=== PATIENT | female | born 1975 | race Caucasian/White ===

== ENCOUNTER 2023-04-20 14:59 | Outpatient (REF) | payer MEDICAID, SELFPAY ==
[2023-04-20 15:55] LABS: MANUAL DIFF FLAG NO
[2023-04-20 16:02] LABS: Basophils Percent Auto 0.3 % (0-2); Eosinophils Absolute Auto 0.1 X10*3/uL (0.0-0.4); Eosinophils Percent Auto 2.4 % (0-4); Hematocrit 35.7 % (37.0-47.0); Hemoglobin 11.7 g/dl (12.0-16.0); Imm Gran Abs Auto 0.02 X10*3/uL (0.00-0.03); Imm Gran Pct Auto 0.3 % (0.0-0.4); Lymphocytes Absolute Auto 1.6 X10*3/uL (1.2-4.9); Mean Corpuscular HGB Conc 32.8 g/dl (31.0-35.0); Mean Corpuscular Hemoglobin 30.8 pg (27.0-33.0); Mean Corpuscular Volume 93.9 fL (80.0-98.0); Mean Platelet Volume 10.4 fL (9.4-12.3); Monocytes Absolute Auto 0.4 X10*3/uL (0.1-1.2); Monocytes Percent Auto 7.2 % (2-11); Neutrophils Absolute Auto 3.6 x10*3/uL (2.0-8.3); Neutrophils Percent Auto 61.8 % (45-73); Platelet Count 353 X10*3/uL (160-400); Red Cell Distribution Width 12.1 % (11.0-16.0); White Blood Count 5.9 X10*3/uL (4.8-10.8)
[2023-04-20 16:40] LABS: Alanine Aminotransferase 20 U/L (0-31); Albumin Level 4.3 g/dL (3.5-5.0); Alkaline Phosphatase 71 U/L (39-117); Anion Gap 9 (12-20); Aspartate Amino Transferase 18 U/L (5-31); Bilirubin Total 0.2 mg/dL (0.0-1.0); Blood Urea Nitrogen 27 mg/dL (9-16); Calcium 9.4 mg/dL (8.4-10.2); Carbon Dioxide 25 mmol/L (22-29); Chloride 108 mmol/L (96-108); Estimated Glomerular Filt Rate 48; Glucose Random 85 mg/dL (60-115); Potassium 4.1 mmol/L (3.3-5.1); Sodium 138 mmol/L (135-145); Total Protein 7.9 g/dL (6.5-8.0)
[2023-04-20 16:56] LABS: TSH reflex Free T4 1.33 uIU/mL (0.32-4.0)
[2023-04-21 04:18] LABS: HIV AB/AG Nonreactive (Nonreactive); HIV Num 1 0.07 S/CO (0.00-0.99); ~HepC Num1 0.09 S/CO (0.00-0.79); ~Hepatitis C Antibody Nonreactive (Nonreactive)
[2023-04-21 11:53] LABS: RPR Rapid Plasma Reagin NON-REACTIVE (NON-REACTIVE)
== END 2023-04-20 15:00 | disposition home or self-care (01) ==
LOC: HO.HHCL 14:59
PROVIDERS: Visit Provider Nurse Practitioner Primary Care
DX: R56.9 Unspecified convulsions (principal); E03.9 Hypothyroidism, unspecified; Z11.3 Encounter for screening for infections with a predominantly sexual mode of transmission
CPT/HCPCS: 36415; 80053; 84443; 85025; 86592; 86803; 87389

== ENCOUNTER 2023-05-24 16:14 | Outpatient (REF) | payer MEDICAID, SELFPAY ==
[2023-05-24 16:25] LABS: MANUAL DIFF FLAG NO
[2023-05-24 17:41] LABS: Basophils Percent Auto 0.4 % (0-2); Eosinophils Absolute Auto 0.2 X10*3/uL (0.0-0.4); Eosinophils Percent Auto 4.6 % (0-4); Hematocrit 37.6 % (37.0-47.0); Hemoglobin 12.3 g/dl (12.0-16.0); Imm Gran Abs Auto 0.02 X10*3/uL (0.00-0.03); Imm Gran Pct Auto 0.4 % (0.0-0.4); Lymphocytes Absolute Auto 1.5 X10*3/uL (1.2-4.9); Lymphocytes Percent Auto 32.2 % (20-40); Mean Corpuscular HGB Conc 32.7 g/dl (31.0-35.0); Mean Corpuscular Hemoglobin 31.4 pg (27.0-33.0); Mean Corpuscular Volume 95.9 fL (80.0-98.0); Mean Platelet Volume 10.4 fL (9.4-12.3); Monocytes Absolute Auto 0.5 X10*3/uL (0.1-1.2); Monocytes Percent Auto 10.5 % (2-11); Neutrophils Absolute Auto 2.4 x10*3/uL (2.0-8.3); Neutrophils Percent Auto 51.9 % (45-73); Platelet Count 328 X10*3/uL (160-400); Red Blood Count 3.92 X10*6/uL (4.20-5.50); Red Cell Distribution Width 11.9 % (11.0-16.0); White Blood Count 4.6 X10*3/uL (4.8-10.8)
[2023-05-24 18:20] LABS: Anion Gap 10 (12-20); Carbon Dioxide 25 mmol/L (22-29); Chloride 109 mmol/L (96-108); Potassium 3.9 mmol/L (3.3-5.1); Sodium 140 mmol/L (135-145)
[2023-05-24 18:24] LABS: Carbamazepine Tegretol 4.5 mcg/mL (5.0-12.0)
[2023-05-27 17:49] LABS: Topiramate 2.8 mcg/mL (see note)
== END 2023-05-24 16:15 | disposition home or self-care (01) ==
LOC: HO.LAB 16:14
PROVIDERS: Visit Provider Psychiatry & Neurology Neurology
DX: G40.909 Epilepsy, unspecified, not intractable, without status epilepticus (principal); Z79.899 Other long term (current) drug therapy
CPT/HCPCS: 36415; 80051; 80156; 80201; 85025

== ENCOUNTER 2023-12-11 08:41 | Outpatient (REF) | payer MEDICAID, SELFPAY ==
--- NOTE | ~2023-12-11 | MR_ITS ---
EXAMINATION: MR BRAIN WITHOUT CONTRAST CLINICAL INFORMATION: Epilepsy. 48-year-old female. COMPARISON: No prior available. TECHNIQUE: MRI of the brain was obtained using routine sequences without contrast. Examination was performed on a 1.5 [employer] Siem[employer] magnet, utilizing standard sequences. Exam submitted for interpretation 02/08/2024. FINDINGS: There is no diffusion restriction. There is no intracranial hemorrhage, acute infarction, mass effect, or edema. Ventricles, sulci, and cisterns are normal in size and configuration for patient age. No shift of midline. No abnormal hemosiderin deposition is identified. There are 2 foci of mildly confluent white matter signal hyperintensity in the right tate radiata, bilateral periventricular/pericallosal marginal regions, and left posterior frontal subcortical white matter, as well as a linear focus in the right precentral gyrus subcortical white matter. There is a small focus in the central ashanti, and a tiny focus in the left MLF. In the left posterior frontal region there is probable involvement of the subcortical U fibers (series 13, image 8). There is a solitary T2 hyperintense focus in the left anterior temporal white matter (series 13, image 21). Findings are nonspecific and could represent small vessel ischemic changes although inflammatory demyelination with juxtacortical lesions is also consideration. There is normal hippocampal volume and signal. There is no evidence of hippocampal atrophy. Midline structures appear normally formed. No callosal atrophy. The pituitary gland appears normal. Posterior fossa structures otherwise appear normal. Cerebellar tonsils are appropriately located. Major flow voids are preserved within the skull base. The globes and orbital contents demonstrate no abnormalities. Paranasal sinuses are clear bilaterally. Nasal septum is midline without spur. The mastoids and tympanic cavities are normally aerated. Extracranial soft tissues demonstrate no abnormalities. No suspicious bone marrow changes are evident. Atlantoaxial joint is normal. MR/MR head/brain wo con IMPRESSION: 1. Several globular white matter foci of T2 signal hyperintensity in the cerebral hemispheres, with small foci in the left anterior temporal lobe, right postcentral gyrus, pericallosal region, right tate radiata, central ashanti, and left MLF. In the high left frontal lobe, a dominant lesion appears to involve the subcortical U fibers, highly suggesting inflammatory demyelination. Differential includes multiple sclerosis. ADEM is also a consideration as well as other rare diseases. Consider postcontrast examination to assess for enhancement. Would also workup for multiple sclerosis. 2. Seizures may be explained by the small left temporal focus of white matter signal abnormality. 3. Otherwise, no intracranial hemorrhage, acute infarction, mass effect, or edema. Electronically signed by: Francis Harris MD 02/08/2024 01:24 PM [facility]
== END 2023-12-11 08:42 | disposition home or self-care (01) ==
LOC: HO.MRI 08:41
PROVIDERS: Visit Provider Psychiatry & Neurology Neurology
DX: G40.909 Epilepsy, unspecified, not intractable, without status epilepticus (principal)
CPT/HCPCS: 70551

== ENCOUNTER → 2023-12-11 09:00 | Outpatient (BNV) | payer MEDICAID, SELFPAY | PROVIDERS: Visit Provider Radiology Diagnostic Radiology | DX: G40.919 Epilepsy, unspecified, intractable, without status epilepticus (principal) | CPT/HCPCS: 70551 ==